=== PATIENT | male | born 1990 | race Caucasian/White ===

== ENCOUNTER 2018-01-17 10:33 | Emergency (ER) | payer OTHER ==
[~2018-01-17] VITALS: Ht 175.3 cm; Wt 38.6 kg
[~2018-01-17 10:33] MED LIST: DEXILANT; FLEXERIL10 MG PO; MOTRIN800 MG PO; NAPROSYN500 MG PO; NOHOMEMEDS; NORCO 5/3251 TABLET PO
[2018-01-17] MEDS ORDERED: VALIUM5 MG PO (13:14)
[2018-01-17] MEDS ORDERED: PREDNISONE10 MG PO (13:14)
[2018-01-17 13:19] VITALS: BP 143/95
== END 2018-01-17 13:38 | disposition home or self-care (01) ==
LOC: EME 10:33
DX: S76.012A Strain of muscle, fascia and tendon of left hip, initial encounter (principal); X58.XXXA Exposure to other specified factors, initial encounter; K21.9 Gastro-esophageal reflux disease without esophagitis; F17.200 Nicotine dependence, unspecified, uncomplicated
CPT/HCPCS: 73502; 99281; 99284; J1100